=== PATIENT | male | born 1990 | race African-American/Black ===

== ENCOUNTER 2019-07-24 16:18 | Emergency (ER) | payer OTHER, SELFPAY ==
[2019-07-24] MEDS ORDERED: Sodium Chloride 0.9% 1,000 ML ONE (16:58)
[2019-07-24 17:12] LABS: #Basophils 0.1 thou/uL (0.0-0.2); #Eosinphils 0.1 thou/uL (0.0-0.7); #Lymphocytes 1.2 thou/uL (1.20-3.40); #Monocytes 0.9 thou/uL (0.11-0.59); #Neutrophils 10.6 thou/uL (1.40-6.50); %Basophils 0.4 % (0.0-1.0); %Eosinophils 0.4 % (0.0-10.0); %Lymphocytes 9.6 % (21.0-51.0); %Monocytes 6.7 % (0.0-10.0); %Neutrophils 82.8 % (42.0-75.0); Hemoglobin 14.7 g/dL (14.0-18.0); Mean Corpuscular HGB CONC 31.6 g/dL (32.0-36.0); Mean Corpuscular Hemoglobin 28.2 pg (27.0-31.0); Mean Corpuscular Volume 89.5 fL (78.0-98.0); Mean Platelet Volume 6.9 fL (7.4-10.4); Platelet Count 229 thou/uL (130-400); RBC Distribution Width 12.8 % (11.5-14.5); Red Blood Cell (RBC) Count 5.19 mill/uL (4.70-6.10); White Blood Cell (WBC) Count 12.8 thou/uL (4.8-10.8)
[2019-07-24 17:29] LABS: ALT (SGPT) 25 U/L (8-55); AST (SGOT) 44 U/L (5-34); Acetaminophen Less than 6.0 mcg/mL (10.0-30.0); Albumin 3.9 g/dL (3.5-5.0); Alcohol Less than 10 mg/dL (Less than 10); Alkaline Phosphatase 85 U/L (40-110); Anion Gap 17 mmol/L (10-20); BUN (Urea Nitrogen) 16 mg/dL (8.9-20.6); Bilirubin, Total 1.2 mg/dL (0.2-1.2); CK (CPK) 1714 U/L (30-200); Calc. Creatinine Clearance 0 mL/min (70-130); Calcium 9.2 mg/dL (7.8-10.44); Carbon Dioxide 21 mmol/L (22-29); Chloride 108 mmol/L (98-107); Estimated GFR-MDRD 80; Globulin 2.8 g/dL (2.4-3.5); Glucose 107 mg/dL (70-105); Protein, Total 6.7 g/dL (6.0-8.3); Salicylate Less than 8.0 mg/dL (15.0-30.0); Sodium 142 mmol/L (136-145)
--- NOTE | 2019-07-24 18:41 | CT ---
Exam: Head CT without contrast HISTORY: Altered mental status. COMPARISON: none FINDINGS: Hemorrhage: No intraparenchymal hemorrhage or extra-axial hematoma. Brain parenchyma: Cortical de dios-white matter differentiation is preserved. No mass effect or midline shift. Basilar cisterns are patent. Ventricular system: Ventricles and sulci are patent and symmetric. Calvarium: Intact. Sinuses and mastoid air cells: Adequate mastoid air cell aeration. Large slightly complex mucous rete ntion cyst in the right maxillary sinus IMPRESSION: No acute intracranial process.
[2019-07-24] MEDS ORDERED: Lorazepam 2 MG/ML VIAL ONE ×2 (19:03→19:05)
[2019-07-24] MEDS ORDERED: diphenhydrAMINE 50 MG/ML VIAL ONE (19:16)
== END 2019-07-24 21:57 | disposition short-term general hospital (02) ==
LOC: NAV ERS 16:18
DX: M62.82 Rhabdomyolysis (principal); E05.90 Thyrotoxicosis, unspecified without thyrotoxic crisis or storm; R41.82 Altered mental status, unspecified; F17.210 Nicotine dependence, cigarettes, uncomplicated
CPT/HCPCS: 70450; 80053; 80307; 82550; 83605; 84443; 85025; 93005; 94760; 96361; 96374; 96375; J1200; J2060; J7050

== ENCOUNTER 2020-11-21 22:11 | Emergency (ER) | payer SELFPAY ==
[2020-11-21] MEDS ORDERED: Ketorolac Tromethamine 60 MG/2 ML VIAL ONE (23:26)
== END 2020-11-21 23:54 | disposition home or self-care (01) ==
LOC: NAV ERS 22:11
DX: S13.9XXA Sprain of joints and ligaments of unspecified parts of neck, initial encounter (principal); S40.011A Contusion of right shoulder, initial encounter; S70.01XA Contusion of right hip, initial encounter; F17.210 Nicotine dependence, cigarettes, uncomplicated; W19.XXXA Unspecified fall, initial encounter
CPT/HCPCS: 96372; J1885

== ENCOUNTER 2021-10-25 12:59 | Emergency (ER) | payer SELFPAY ==
[2021-10-25] MEDS ORDERED: cefTRIAXone\\ROCEPHIN 500 MG VIAL ONE (13:32)
[2021-10-25] MEDS ORDERED: Azithromycin 250 MG TAB ONE ×2 (13:32→13:33)
[2021-10-25] MEDS ORDERED: Water For Inject, Bacteriostat 0 ML ONE (13:34)
[2021-10-25] MEDS ORDERED: Sterile Water 0 ML ONE (13:35)
[2021-10-25] MEDS ORDERED: Sterile Water 10 ML ONE (13:37)
[2021-10-25 13:58] LABS: Bilirubin Small (Negative); Blood, Urine Negative (Negative); Glucose, Urine (Dipstick) Negative (Negative); Ketone, Urine 15 mg/dL (Negative); Leukocyte Negative (Negative); Nitrite Negative (Negative); Protein, Urine (Dipstick) 100 mg/dL (Neg-Trace)
[2021-10-25 14:05] LABS: Clarity SL HAZY (Clear)
[2021-10-25 14:14] LABS: Bacteria/HPF Rare-Few HPF (None Seen); Sperm/HPF Rare HPF (None Seen); Squamous Epithelial 0-3 HPF (0-3); WBC/HPF 0-3 HPF (0-3)
[2021-10-25 14:15] LABS: Mucous/LPF 3+ LPF (<2+)
[2021-10-26 19:59] LABS: Chlam.trachomatis by PCR,Urine Not Detected (NotDetected)
== END 2021-10-25 14:13 | disposition home or self-care (01) ==
LOC: NAV ERS 12:59
DX: N34.1 Nonspecific urethritis (principal); F17.210 Nicotine dependence, cigarettes, uncomplicated
CPT/HCPCS: 81003; 81015; 87491; 87591; 96372; 99283; J0696

== ENCOUNTER 2023-01-31 13:02 | Emergency (ER) | payer SELFPAY ==
[2023-01-31] MEDS ORDERED: Bacitracin 1 PK ONE (13:51)
[2023-01-31] MEDS ORDERED: Cephalexin 250 MG CAP ONE (14:18)
== END 2023-01-31 14:23 | disposition home or self-care (01) ==
LOC: NAV ERS 13:02
DX: S91.114A Laceration without foreign body of right lesser toe(s) without damage to nail, initial encounter (principal); F31.9 Bipolar disorder, unspecified; W26.8XXA Contact with other sharp object(s), not elsewhere classified, initial encounter; Y93.01 Activity, walking, marching and hiking
CPT/HCPCS: 99282